=== PATIENT | female | born 1995 | race Caucasian/White ===

== ENCOUNTER 2017-03-02 01:09 | Emergency (ER) | payer SELFPAY | END 2017-03-02 04:35 | disposition home or self-care (01) | LOC: ER1 01:09 | DX: S80.01XA Contusion of right knee, initial encounter (principal); S20.219A Contusion of unspecified front wall of thorax, initial encounter; S70.02XA Contusion of left hip, initial encounter; S40.212A Abrasion of left shoulder, initial encounter; G40.909 Epilepsy, unspecified, not intractable, without status epilepticus; Z79.899 Other long term (current) drug therapy; V89.2XXA Person injured in unspecified motor-vehicle accident, traffic, initial encounter; Y93.89 Activity, other specified; Y92.410 Unspecified street and highway as the place of occurrence of the external cause | CPT/HCPCS: 71010; 73564; 84703; 99284 ==

== ENCOUNTER → 2022-02-10 | Outpatient (CLI) | payer BC | LOC: EMI 09:36 | DX: R51.9 Headache, unspecified (principal); H47.10 Unspecified papilledema | CPT/HCPCS: 70543; 70553; A9577 ==